=== PATIENT | male | born 1970 | race Caucasian/White ===

== ENCOUNTER 2022-08-22 14:03 | Outpatient (CLI) | payer OTHER, SELFPAY ==
--- NOTE | 2022-08-22 14:30 | MR_ITS ---
[address] [address] Phone:?[phone] Fax:?[phone] Referring Physician Information: Sean Leblanc M.D. [address] [facility] [address] Phone:?[phone] Fax:?[phone] Patient:?Rogerio Bhakta D.O.B:?1970 Sex:?Male Phone:?[phone] [facility] MRN:?[id number] Exam Date:?08/22/2022 ? EXAM: MRI of the RIGHT SHOULDER, without contrast CLINICAL: Right shoulder pain. Evaluate for rotator cuff tear. COMPARISONS: None available. TECHNICAL: MRI sequences of the right shoulder: Axials: PD, PDFS Coronals: PD, T2FS Sagittals: PDFS, T2 SEDATION: None. CONTRAST: None. FINDINGS: Rotator cuff: Supraspinatus/Infraspinatus: There is high-grade near full-thickness to full- thickness tearing of the anterior insertional fibers of the distal supraspinatus tendon measuring approximately 8 mm in AP dimension without significant retraction of torn tendon fibers as seen on coronal series 4 image 10 and sagittal series 8 image 6. Mild tendinosis and mild partial interstitial tearing of the remainder of the distal supraspinatus tendon with mild partial interstitial tearing extending into the anterior distal infraspinatus tendon. No significant fatty atrophy of the muscle bellies. Teres minor: No tendinosis, tear or atrophy. Subscapularis: Mild tendinosis and minimal partial interstitial tearing of the distal subscapularis tendon as seen on sagittal series 8 image 12-18. No significant fatty atrophy of the muscle belly. Bursae: Subacromial-subdeltoid: Mild bursal fluid. Subcoracoid: No convincing subcoracoid bursal thickening/bursitis. Coracoacromial arch: Acromion morphology: Type II. No os acromiale. Acromiohumeral space: Within normal limits. Coracohumeral space: Within normal limits. Biceps tendon, long head: Minimal tendinosis of the intra-articular tendon. No significant tendon tear or displacement. Mild fluid about the imaged proximal extra-articular tendon. Glenohumeral joint: Physiologic volume of joint fluid. Articular cartilage: No significant chondral loss. Capsule: No convincing evidence of capsular thickening or injury. Labrum: Mild degenerative fraying is seen to involve the superior labrum. Remainder of the labrum appears intact as visualized on this nonarthrogram exam. No perilabral cyst identified. Bones: No suspicious marrow signal alteration, fracture or dislocation. Reactive marrow edema and small cystic changes are seen to involve the greater tuberosity of the proximal humerus/peripheral humeral head adjacent to the distal supraspinatus and infraspinatus tendons. Acromioclavicular joint: Mild changes of arthrosis. No AC joint injury/widening. IMPRESSION: 1. High-grade near full-thickness to full-thickness tearing involving the anterior insertional fibers of the distal supraspinatus tendon. No significant tendon retraction at this time. Mild partial interstitial tearing involves the remainder of the distal supraspinatus tendon extending into the junction with the anterior distal infraspinatus tendon. 2. Mild tendinosis and minimal partial interstitial tearing of the distal subscapularis tendon. 3. Minimal tendinosis of the intra-articular long head biceps tendon. 4. Mild degenerative fraying of the superior labrum. 5. Mild AC joint arthrosis. [facility] Electronically signed on 08/25/2022 7:32:00 AM by Mike Nath D.O.
== END 2022-08-22 14:04 | disposition home or self-care (01) ==
PROVIDERS: PCP Family Medicine; Visit Provider Orthopaedic Surgery Sports Medicine
DX: M25.511 Pain in right shoulder (principal); M75.101 Unspecified rotator cuff tear or rupture of right shoulder, not specified as traumatic; S46.911A Strain of unspecified muscle, fascia and tendon at shoulder and upper arm level, right arm, initial encounter; M19.011 Primary osteoarthritis, right shoulder
CPT/HCPCS: 73221

== ENCOUNTER 2022-09-15 06:32 | Day surgery (SDC) | payer OTHER, SELFPAY ==
[2022-09-15] VITALS (16 sets, daily range): BP systolic 92–113; BP diastolic 45–78; PULSE 51–70; RESP 12–18; TEMP 36.1–36.9; O2SAT 93–98; BMI 27.2
[2022-09-15] MEDS: LACTATED RINGERS 1000 ML 1,000 ML 100 ML IV ×2 (07:05→09:44)
[2022-09-15] MEDS: SODIUM CHLORIDE 0.9 % (FLUSH) 10 ML SYRINGE IVF (07:05)
--- NOTE | 2022-09-15 07:18 | SUR.PREOP ---
TIME?OUT:?0719 PT/RN/MDA?VERIFICATION?OF?SURGICAL?SITE,?PROCEDURE,?AND?CONSENT OBTAINED?PRIOR?TO?INVASIVE?PROCEDURE.
[2022-09-15] MEDS: fentaNYL 100 MCG/2 ML inj IVP (07:19)
[2022-09-15] MEDS: MIDAZOLAM HCL 1 MG/ML inj IVP (07:19)
[2022-09-15] MEDS: CEFAZOLIN 2 GM in 0.9 % SODIUM CHLORIDE Mini-bag 100 ML IVPB (08:00)
[2022-09-15] MEDS: EPINEPHrine 1 MG in SODIUM CHLORIDE IRRIG SOLUTION 3,000 ML 9003 MG IRRIGATION (08:21)
[2022-09-15] MEDS: EPINEPHrine 1 MG in SODIUM CHLORIDE IRRIG SOLUTION 3,000 ML 6002 MG IRRIGATION (08:30)
--- NOTE | 2022-09-15 09:41 | PM.ORPRC ---
Procedure Note Date of procedure: 09/15/22 Procedure: PREOPERATIVE DIAGNOSES: 1. Right shoulder rotator cuff tear. 2. Right shoulder subacromial impingement syndrome. POSTOPERATIVE DIAGNOSES: 1. Right shoulder rotator cuff tear - Full-thickness supraspinatus and upper border subscapularis 2. Right shoulder anterior and superior labral tearing 3. Right shoulder subacromial impingement syndrome. NAME OF OPERATION: 1. Right shoulder arthroscopic rotator cuff repair (Upper border subscapularis and supraspinatus, speed bridge) 2. Right shoulder arthroscopic limited glenohumeral debridement 3. Right shoulder arthroscopic bursectomy, subacromial decompression/partial acromioplasty. SURGEON: Sean Leblanc MD WOOD FINISHER: Aristeo Yang PA-C. Of note, a skilled bilingual medical assistant was critical for this case to aide in patient positioning, suture manipulation, arm positioning, instrument positioning, and closure. ANESTHESIA: General plus preoperative supraclavicular block. EBL: less than 50 mL IMPLANTS: Arthrex 4.75 mm BioComposite SwiveLock suture anchor ( x1); 2.6 mm FiberTak RC 0 ( x2); 5.5 mm BioComposite SwiveLock suture anchor ( x2) COMPLICATIONS: None evident INDICATIONS: The patient is a pleasant, 52-year-old male who has experienced right shoulder pain that has been increasing in recent time. Physical exam and imaging were consistent with a rotator cuff tear. Given their findings, as well as the weakness and pain, and inadequate response to nonoperative management, recommendation was made for surgery. FINDINGS: Exam under anesthesia revealed stable shoulder with excellent range of motion. The diagnostic arthroscopy revealed relatively healthy chondral surfaces the glenohumeral joint. The Subscapularis tendon was torn from its upper border with moderate retraction. The long head of the biceps tendon was intact. The superior rotator cuff tendon was found to be torn full-thickness through the anterior and midportion of the supraspinatus with retraction to the articular border. The labrum was torn in the anterior and superior aspects. No loose bodies were identified within the pouch or subscapularis recess. PROCEDURE: Following a thorough discussion of risks, benefits, and alternatives, consent was obtained and the right shoulder was marked. The patient was brought to the operating room and placed supine on the operating table. Induction of anesthesia was completed after preoperative supraclavicular block was administered in preop holding. Appropriate time out was performed identifying proper patient, site, and procedure. 2 g IV Ancef was administered within 1 hour of incision preoperatively. The right upper extremity was prepped and draped in the appropriate sterile fashion using ChloraPrep prep. This was after the patient was positioned in the beach chair with their head in neutral alignment and all bony prominences well padded. The shoulder was insufflated with 20mL of normal saline via an 18g spinal needle from a posterior approach. An 11 blade skin incision allowed a blunt trochar to be inserted and diagnostic arthroscopy to be performed with the findings as noted above. An anterior portal was established with an outside in technique. This allowed the probe to be inserted and confirm the diagnostic arthroscopic findings. The shaver was then inserted and allowed debridement of the anterior and superior labrum. Following this, the upper border subscapularis was repaired after debriding the lesser tuberosity with the shaver and [place] cautery. Subscapularis was captured in horizontal mattress fashion with a fiber tape suture. The tails were brought to a single anchor in the lesser tuberosity with excellent reapproximation of the subscap tendon and good excursion/tension. Thereafter, the subacromial space was entered. Here, a complete bursectomy and partial acromioplasty/subacromial decompression was performed with a combination of radiofrequency ablator, the shaver, and a 5.5 mm bur. Further inspection of the supraspinatus and infraspinatus rotator cuff was performed. This identified the tear as noted above. The margins of the tear were debrided, and the greater tuberosity was debrided with a combination of the [place] cautery, shaver, and bur on reverse setting. After gentle decortication, a speed bridge configuration with a medial alex was engaged. 2 medial anchors were placed and the sutures were passed with a fiber link. The eyelet suture tails were then retrieved and utilizing the knotless mechanism were cinched down for the medial alex purpose. A tail from each of the medial row anchor FiberTapes were then brought to a lateral row anchor along with 1 of the tails from the medial alex. Excellent reapproximation of the tissue to the greater tuberosity was achieved with broad footprint compression. Prior to anchor day haul or farm charter bus driver removal, the eyelet sutures were tugged on for each anchor and found that the anchor had excellent stability within the bone. The shoulder was placed through range of motion and found to be stable. The rotator cuff was re-probed and found to be stable. Instruments were removed. Excess fluid was drained, closure performed with 4-0 Monocryl and Steri-Strips. Dressings were applied. Sling was applied. The patient was awoken from anesthesia and transferred to the PACU in stable condition. A skilled bilingual medical assistant was critical for this case to aid in patient positioning, limb positioning, skill to manipulate arthroscopic instruments and camera, suture management, patient safety, and closure. PLAN: 1. Elbow, forearm, wrist and digit range of motion as tolerated. 2. Encouraged ice. 3. Percocet for pain as needed. 4. Sling at all times except for ROM and showering. 5. Follow up with PA visit in 1-2 weeks for wound check. Initiate physical therapy following that visit for passive range of motion. Initiate active assisted range of motion at 4-6 weeks. May do pendulums now.
--- NOTE | 2022-09-15 10:06 | W.ANESCHARGE ---
Anesthesia Charges Start Date/Time Anesthesia Start Date: 09/15/22 Anesthesia Start Time: 07:51 Stop Date/Time Anesthesia Stop Date: 09/15/22 Anesthesia Stop Time: 10:01 Summary Emergency: No
--- NOTE | 2022-09-15 10:31 | SUR.PHASEI ---
patient met discharge criteria per anesthesia
--- NOTE | 2022-09-15 11:02 | W.ANESCHARGE ---
Anesthesia Charges Start Date/Time Anesthesia Start Date: 09/15/22 Anesthesia Start Time: 07:51 Stop Date/Time Anesthesia Stop Date: 09/15/22 Anesthesia Stop Time: 10:01 Summary Emergency: No
--- NOTE | 2022-09-15 11:03 | W.PM.NB ---
Nerve Block Nerve Block Time Seen by Provider: 07:22 Date Seen: 09/15/22 Type of block requested by surgeon for post-operative analgesia: supraclavicular Side: right Time out performed: Yes Verification of patient name: Yes Verification of date of : Yes Site marking: site marked Name of person performing procedure: Julio Continuous monitoring Was continuous monitoring of O2 sat, B/P, quality assurance monitor body, recorded every 15 minutes?: Yes Procedure Checklist: sterile prep, needles and gloves Ultrasound guided. Images saved: Yes Medications given in 5ml increments after negative aspiration: Ropivicaine %: 0.5 mL: 20 Needle gauge: 22 Decadron (mg): 10 Precedex (mcg): 25 Patient tolerated procedure well: Yes Block Charges Block Charge (with Pro Fee): Brachial Plexus Use of Ultrasound Machine for Block: Yes- US Guidance/pain block
== END 2022-09-15 12:10 | disposition home or self-care (01) ==
PROVIDERS: PCP Family Medicine; Visit Provider Orthopaedic Surgery Sports Medicine
PROC: (CPT 29805; principal; 2022-09-15 07:45)
DX: M75.121 Complete rotator cuff tear or rupture of right shoulder, not specified as traumatic (principal); M75.41 Impingement syndrome of right shoulder; S43.431A Superior glenoid labrum lesion of right shoulder, initial encounter; M25.511 Pain in right shoulder
CPT/HCPCS: 29827; 29826; 29822; 01630; 64415; 76942; C1713; J0171; J0330; J0690; J1100; J2250; J2405; J2704; J2795; J3010; J7120; L3670

== ENCOUNTER 2022-12-16 13:00 | Outpatient (RCR) | payer OTHER, SELFPAY | END 2023-04-16 23:59 | disposition home or self-care (01) | PROVIDERS: PCP Family Medicine; Visit Provider Orthopaedic Surgery Sports Medicine | DX: M25.511 Pain in right shoulder (principal); Z51.89 Encounter for other specified aftercare | CPT/HCPCS: 97110; 97162 ==